=== PATIENT | male | born 1960 ===

== ENCOUNTER 2016-11-15 07:17 | Day surgery (SDC) | payer OTHER ==
[2016-11-15 08:03] VITALS: TEMP 97.4
[2016-11-15 08:04] VITALS: BMI 24.2
[2016-11-15] MEDS ORDERED: Propofol 10 mg/ml Inj (20 ML) ONE ×2 (10:00→10:22)
[2016-11-15] MEDS ORDERED: Lidocaine Hydrochloride 5 ML INJ ONE (10:21)
[2016-11-15 11:26] VITALS: RESP 14; O2SAT 100
[2016-11-15 11:28] VITALS: BP 115/57; PULSE 53
== END 2016-11-15 11:44 | disposition home or self-care (01) ==
LOC: C.ENDO 07:17
PROVIDERS: ATTEND Internal Medicine Gastroenterology
DX: D12.3 Benign neoplasm of transverse colon (principal); D12.5 Benign neoplasm of sigmoid colon; K29.80 Duodenitis without bleeding; K57.30 Diverticulosis of large intestine without perforation or abscess without bleeding; K64.8 Other hemorrhoids
CPT/HCPCS: 43239; 45388; 88305; J2704; J3010